=== PATIENT | male | born 1995 | race African-American/Black ===

== ENCOUNTER 2016-10-22 18:30 | Emergency (ER) | payer SELFPAY ==
[~2016-10-22] VITALS: Ht 188 cm; Wt 90.0 kg
[2016-10-22] MEDS ORDERED: HYDROCODONE/ACETAMINOPHEN 5-325 MG TABLET PO ONE (21:00)
[2016-10-22] MEDS ORDERED: IBUPROFEN 600 MG TABLET PO ONE (21:00)
[2016-10-22 21:47] VITALS: BP 125/70
== END 2016-10-22 22:01 | disposition home or self-care (01) ==
LOC: EMS 18:31
DX: S33.5XXA Sprain of ligaments of lumbar spine, initial encounter (principal); S00.81XA Abrasion of other part of head, initial encounter; V43.52XA Car driver injured in collision with other type car in traffic accident, initial encounter; Y93.89 Activity, other specified; Y92.89 Other specified places as the place of occurrence of the external cause; Y99.8 Other external cause status
CPT/HCPCS: 72070; 72100; 99284

== ENCOUNTER 2016-12-30 01:39 | Emergency (ER) | payer SELFPAY ==
[~2016-12-30] VITALS: Ht 193 cm; Wt 97.7 kg
[2016-12-30 03:21] LABS: BASOPHILS % (AUTO) 0.5 % (0.0-2.0); EOSINOPHILS % (AUTO) 2.4 % (1.0-6.0); HEMATOCRIT 44.1 % (41-53); HEMOGLOBIN 14.8 g/dL (13.5-17.5); LYMPHOCYTES # (AUTO) 1.5 K/uL (1.0-4.8); LYMPHOCYTES % (AUTO) 37.5 % (22.0-44.0); MEAN CORPUSCULAR HEMOGLOBIN 27.8 pg (26.0-34.0); MEAN CORPUSCULAR HGB CONC 33.6 G/dL (31.0-37.0); MEAN CORPUSCULAR VOLUME 83 fL (80-100); MONOCYTES # (AUTO) 0.3 K/uL (0.1-1.0); MONOCYTES % (AUTO) 7.1 % (2.0-9.0); NEUTROPHILS # (AUTO) 2.1 K/uL (1.8-7.7); NEUTROPHILS % (AUTO) 52.5 % (40.0-70.0); PLATELET COUNT (AUTO) 251 K/uL (150-450); RED BLOOD CELL COUNT(AUTO) 5.33 MIL/uL (4.50-5.90); RED CELL DISTRIBUTION WIDTH 13.1 % (11.5-14.5)
[2016-12-30 03:51] LABS: ANION GAP 10 mmol/L (8-16); CALCIUM, TOTAL 9.4 mg/dL (8.8-10.5); CARBON DIOXIDE 29 mmol/L (22-29); CHLORIDE 102 mmol/L (98-107); CREATININE 1.01 mg/dL (0.60-1.30); GLOMERULAR FILTR. RATE CALC > 60 mL/min (>60); POTASSIUM 3.8 mmol/L (3.5-5.1); SODIUM SERUM 141 mmol/L (136-145); UREA NITROGEN, BLOOD 10 mg/dL (7-18)
[2016-12-30 04:06] LABS: ALANINE AMINOTRANSFERASE 15 U/L (12-78); ALBUMIN 4.3 g/dL (3.4-5.0); ASPARTATE AMINOTRANSFERASE 19 U/L (15-37); BILIRUBIN,TOTAL 0.5 mg/dL (0.1-1.0); TOTAL PROTEIN, SERUM 7.2 g/dL (6.4-8.2)
[2016-12-30 04:28] VITALS: BP 138/87
== END 2016-12-30 04:30 | disposition home or self-care (01) ==
LOC: EMS 01:40
DX: F41.9 Anxiety disorder, unspecified (principal)
CPT/HCPCS: 84443; 93005; 99285

== ENCOUNTER 2017-05-21 01:09 | Emergency (ER) | payer SELFPAY ==
[~2017-05-21] VITALS: Ht 193 cm; Wt 98.0 kg
[2017-05-21 01:16] VITALS: BP 151/96
== END 2017-05-21 04:20 | disposition left against medical advice (07) ==
LOC: EMS 01:10
DX: Z53.21 Procedure and treatment not carried out due to patient leaving prior to being seen by health care provider (principal)

== ENCOUNTER 2017-11-10 23:25 | Emergency (ER) | payer OTHER ==
[~2017-11-10] VITALS: Ht 193 cm; Wt 97.7 kg
[2017-11-11] MEDS ORDERED: AZITHROMYCIN 250 MG TABLET PO ONE (03:15)
[2017-11-11] MEDS ORDERED: LIDOCAINE HCL/PF 1% 2 ML VIAL IM ONE (03:15)
[2017-11-11] MEDS ORDERED: CefTRIAXone SODIUM 1 GM/VIAL IM ONE (03:15)
[2017-11-11 03:34] VITALS: BP 133/70
== END 2017-11-11 03:55 | disposition home or self-care (01) ==
LOC: EMS 23:26
DX: N34.2 Other urethritis (principal)
CPT/HCPCS: 87491; 87591; 96372; 99284; J0696; J3490; 99283

== ENCOUNTER 2017-12-07 02:31 | Emergency (ER) | payer OTHER ==
[~2017-12-07] VITALS: Ht 193 cm; Wt 100.0 kg
[2017-12-07 04:13] VITALS: BP 138/84
== END 2017-12-07 04:14 | disposition home or self-care (01) ==
LOC: EMS 02:33
DX: R20.2 Paresthesia of skin (principal)
CPT/HCPCS: 99284

== ENCOUNTER 2017-12-29 00:34 | Emergency (ER) | payer OTHER ==
[~2017-12-29] VITALS: Ht 193 cm; Wt 100.0 kg
[2017-12-29 04:00] LABS: APPEARANCE,URINE CLEAR (CLEAR); BILIRUBIN,URINE NEGATIVE (NEGATIVE); GLUCOSE, URINE (UA) NEGATIVE (NEGATIVE); KETONES,URINE NEGATIVE (NEGATIVE); LEUKOCYTE ESTERASE ,URINE NEGATIVE (NEGATIVE); NITRATE,URINE NEGATIVE (NEGATIVE); OCCULT BLOOD,URINE NEGATIVE (NEGATIVE); PH,URINE 5.5 (5.0-8.0); PROTEIN,URINE POS 1+ (NEGATIVE)
[2017-12-29] MEDS ORDERED: AZITHROMYCIN 250 MG TABLET PO ONE (04:30)
[2017-12-29] MEDS ORDERED: LIDOCAINE HCL/PF 1% 2 ML VIAL IM ONE (04:30)
[2017-12-29] MEDS ORDERED: CefTRIAXone SODIUM 1 GM/VIAL IM ONE (04:30)
[2017-12-29 05:30] VITALS: BP 126/72
== END 2017-12-29 05:54 | disposition home or self-care (01) ==
LOC: EMS 00:35
DX: A64 Unspecified sexually transmitted disease (principal); N34.2 Other urethritis
CPT/HCPCS: 81003; 87491; 87591; 96372; 99284; J0696; J3490

== ENCOUNTER 2018-02-22 01:21 | Emergency (ER) | payer OTHER ==
[~2018-02-22] VITALS: Ht 193 cm; Wt 97.7 kg
[2018-02-22] MEDS ORDERED: PENICILLIN G BENZATHINE LA 2,400,000 UNITS/4 ML SYRINGE IM ONE (02:45)
[2018-02-22] MEDS ORDERED: PENICILLIN G BENZATHINE LA 1,200,000 UNITS/2 ML SYRINGE IM ONE (03:15)
[2018-02-22 03:19] VITALS: BP 142/96
== END 2018-02-22 03:20 | disposition home or self-care (01) ==
LOC: EMS 01:22
DX: N34.2 Other urethritis (principal); Z98.890 Other specified postprocedural states
CPT/HCPCS: 96372; 99283; J0561

== ENCOUNTER 2018-06-16 21:49 | Emergency (ER) | payer SELFPAY ==
[~2018-06-16] VITALS: Ht 193 cm; Wt 97.7 kg
[2018-06-16 22:24] LABS: APPEARANCE,URINE CLEAR (CLEAR); BILIRUBIN,URINE NEGATIVE (NEGATIVE); GLUCOSE, URINE (UA) NEGATIVE (NEGATIVE); KETONES,URINE TRACE mg/dL (NEGATIVE); LEUKOCYTE ESTERASE ,URINE NEGATIVE (NEGATIVE); NITRATE,URINE NEGATIVE (NEGATIVE); OCCULT BLOOD,URINE NEGATIVE (NEGATIVE); PH,URINE 5.5 (5.0-8.0); PROTEIN,URINE NEGATIVE (NEGATIVE)
[2018-06-16] MEDS ORDERED: LIDOCAINE/PF 1% 2 ML VIAL IM ONE (23:45)
[2018-06-16] MEDS ORDERED: PENICILLIN G BENZATHINE LA 2,400,000 UNITS/4 ML SYRINGE IM ONE (23:45)
[2018-06-16] MEDS ORDERED: CefTRIAXone SODIUM 1 GM/VIAL IM ONE (23:45)
[2018-06-16] MEDS ORDERED: AZITHROMYCIN 250 MG TABLET PO ONE (23:45)
[2018-06-17 00:22] VITALS: BP 130/80
== END 2018-06-17 00:26 | disposition home or self-care (01) ==
LOC: EMS 21:52
DX: N34.2 Other urethritis (principal); L98.8 Other specified disorders of the skin and subcutaneous tissue; N50.89 Other specified disorders of the male genital organs; R03.0 Elevated blood-pressure reading, without diagnosis of hypertension
CPT/HCPCS: 36415; 81003; 86780; 87491; 87591; 96372; 99283; J0561; J0696; J3490

== ENCOUNTER 2018-06-28 18:34 | Emergency (ER) | payer SELFPAY ==
[~2018-06-28] VITALS: Ht 193 cm; Wt 97.7 kg
[2018-06-28 21:24] VITALS: BP 130/80
== END 2018-06-28 21:25 | disposition home or self-care (01) ==
LOC: EMS 18:35
DX: R35.0 Frequency of micturition (principal); Z00.00 Encounter for general adult medical examination without abnormal findings